=== PATIENT | female | born 1980 | race Hispanic/Latino ===

== ENCOUNTER 2018-04-12 10:43 | Emergency (ER) | payer OTHER ==
[~2018-04-12 10:43] MED LIST: AUGMENTIN 875-1 EACH PO; CLINDAMYCIN HC300 M1 PO; IBUPROFEN600 M1 PO; IBUPROFEN800 M1 PO; KEFLEX500 M1 PO; NYSTATIN30 GM TOP
[2018-04-12 11:00] VITALS: BP 118/82
[2018-04-12] MEDS ORDERED: PYRIDIUM100 M1 PO (12:13)
[2018-04-12] MEDS ORDERED: KEFLEX500 M1 PO (12:13)
--- NOTE | 2018-04-12 12:13 | ED GENERAL ADULT ---
History of Present Illness General Chief Complaint: Female Urogenital Problems Stated Complaint: PRESSURE WHEN URINATING Source: patient Exam Limitations: no limitations Vital Signs & Intake/Output Vital Signs & Intake/Output Vital Signs Date Time Temp Pulse Resp B/P B/P Pulse O2 O2 Flow FiO2 Mean Ox Delivery Rate 04/12 1132 Room Air 04/12 1100 97.2 73 22 118/82 98 Allergies Coded Allergies: loratadine (From CLARITIN) (SOB 08/14/17) Reconcile Medications Amoxicillin/Potassium Clav (Augmentin 875-125 Tablet) 875 MG-125 MG TABLET 1 TAB PO BID SINUSITIS Cephalexin (Keflex) 500 MG CAPSULE 1 CAP PO BID UTI Clindamycin HCl 300 MG CAPSULE 1 CAP PO 4XDAILY DENTAL (Reported) Ibuprofen 800 MG TABLET 1 TAB PO AD PRN PAIN/INFLAMMATION (Reported) Ibuprofen 800 MG TABLET 1 TAB PO TID HEADACHE Phenazopyridine HCl (Pyridium) 100 MG TABLET 1 TAB PO TID UTI Triage Note: PER PT PRESSURE WITH URINATION,FEELS LIKE I GOT TO GO BUT ONLY GO ALITTLE, DENIES BACK PAIN OR FEVERS Triage Nurses Notes Reviewed? yes Onset: Gradual Duration: day(s): Timing: constant : No Patient currently breastfeeds: No HPI: 37-year-old otherwise healthy female presenting with suprapubic pressure, urinary frequency, and urinary urgency 5 days. Denies dysuria, hematuria, fevers, nausea, vomiting, back pain. No vaginal discharge or bleeding, no history of STDs. (Norah Cotton) Past History Travel History Traveled to [place] past 21 day No Medical History Any Pertinent Medical History? 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 No (Norah Cotton) Review of Systems Review of Systems Constitutional: Reports: no symptoms. EENTM: Reports: no symptoms. Respiratory: Reports: no symptoms. Cardiovascular: Reports: no symptoms. GI: Reports: no symptoms. Genitourinary: Reports: see HPI. Musculoskeletal: Reports: no symptoms. Skin: Reports: no symptoms. Neurological/Psychological: Reports: no symptoms. Hematologic/Endocrine: Reports: no symptoms. Immunologic/Allergic: Reports: no symptoms. (Norah Cotton) Physical Exam Physical Exam General Appearance: well developed/nourished, no apparent distress, alert, awake , comfortable Head: atraumatic, normal appearance Eyes: Bilateral: normal appearance. Neck: normal inspection Respiratory: normal breath sounds, lungs clear Cardiovascular: regular rate/rhythm Gastrointestinal: soft, non-tender Back: normal inspection, no CVA tenderness Extremities: normal inspection Neurologic/Psych: awake, alert, oriented x 3, normal gait, normal mood/affect Skin: intact, normal color, warm/dry Core Measures ACS in differential dx? No CVA/TIA Diagnosis: No Sepsis Present: No Sepsis Focused Exam Completed? No (Norah Cotton) Progress Differential Diagnoses I considered the following diagnoses in my evaluation of the patient: [Cystitis versus pyelonephritis versus cervicitis versus PID] Plan of Care: Orders Procedure Date/time Status Add-on Test (ER Only) 04/12 1210 Active CULTURE,URINE 04/12 1101 Active URINE 04/12 1057 Complete URINALYSIS 04/12 1057 Complete Laboratory Tests 04/12/18 1101: Urinalysis LIGHT H, Urine Color YEL, Urine Clarity HAZY H, Urine pH 6.0, Ur Specific Central 1.025, Urine Protein NEG, Urine Ketones NEG, Urine Nitrite POS H, Urine Bilirubin NEG, Urine Urobilinogen 0.2, Ur Leukocyte Esterase MOD H, Ur Microscopic SEDIMENT EXAMINED, Urine RBC 1-3, Urine WBC > 75 H, Ur Epithelial Cells MANY H, Urine Bacteria MANY H, Urine Mucus FEW, Urine Hemoglobin SMALL H, Urine Glucose NEG, Urine Test NEGATIVE Microbiology 04/12 1101 URINE ROUT: Urine Culture - RECD UA is suspicious for UTI, many bacteria, nitrite positive, greater than 75 WBCs. Urine culture sent. No signs of pyelonephritis on exam. Will cover with Rx Keflex and Pyridium. Counseled on supportive care and strict return precautions. Initial ED EKG: none (Norah Cotton) Departure Departure Disposition: HOME OR SELF CARE Condition: Stable Clinical Impression Primary Impression: UTI (urinary tract infection) Referrals: Patient Has No Primary Care Dr (PCP/Family) Additional Instructions: Take Keflex and Pyridium as prescribed. Follow-up with your primary care provider for reevaluation. Return to the emergency department for any new or worsening symptoms. Departure Forms: Customer Survey General Discharge Information Prescriptions: Current Visit Scripts Cephalexin (Keflex) 1 CAP PO BID #20 CAP Phenazopyridine HCl (Pyridium) 1 TAB PO TID #6 TAB (Norah Cotton) PA/CRM SOLUTION ARCHITECT Co-Sign Statement Statement: ED Attending supervision documentation- [] I saw and evaluated the patient. I have also reviewed all the pertinent lab results and diagnostic results. I agree with the findings and the plan of care as documented in the PA's/CRM SOLUTION ARCHITECT's documentation. [X] I have reviewed the ED Record and agree with the PA's/CRM SOLUTION ARCHITECT's documentation. [] Additions or exceptions (if any) to the PAs/CRM SOLUTION ARCHITECT's note and plan are summarized below: [] (Yakov RICHARDSON,Ishan Perdomo) Critical Care Note Critical Care Note Critical Care Time: non-applicable (Norah Cotton)
== END 2018-04-12 12:22 ==
LOC: ERH 10:43
DX: N39.0 Urinary tract infection, site not specified (principal)
CPT/HCPCS: 81001; 81025; 87086

== ENCOUNTER 2018-07-07 00:29 | Emergency (ER) | payer OTHER ==
[~2018-07-07] VITALS: Ht 165.1 cm; Wt 136.1 kg
[~2018-07-07 00:29] MED LIST changes: +PYRIDIUM100 M1 PO
--- NOTE | 2018-07-07 01:08 | ED CARDIAC/CP/PALPITATIONS ---
History of Present Illness General Chief Complaint: Chest Pain Stated Complaint: CHEST PAIN PER PT Source: patient Exam Limitations: no limitations Vital Signs & Intake/Output Vital Signs & Intake/Output Vital Signs Date Time Temp Pulse Resp B/P B/P Pulse O2 O2 Flow FiO2 Mean Ox Delivery Rate 07/07 0603 97.7 66 20 132/78 97 Room Air 07/07 0342 97.8 63 20 114/53 99 Room Air 07/07 0135 98 Room Air 07/07 0044 97.6 07/07 0038 52 20 144/62 97 Room Air Allergies Coded Allergies: loratadine (From CLARITIN) (SOB 07/07/18) Reconcile Medications Amoxicillin/Potassium Clav (Augmentin 875-125 Tablet) 875 MG-125 MG TABLET 1 TAB PO BID SINUSITIS Cephalexin (Keflex) 500 MG CAPSULE 1 CAP PO BID UTI Clindamycin HCl 300 MG CAPSULE 1 CAP PO 4XDAILY DENTAL (Reported) Ibuprofen 800 MG TABLET 1 TAB PO AD PRN PAIN/INFLAMMATION (Reported) Ibuprofen 800 MG TABLET 1 TAB PO TID HEADACHE Phenazopyridine HCl (Pyridium) 100 MG TABLET 1 TAB PO TID UTI Triage Note: TRIAGE: PATIENT TO ER FROM HOME REPORTING +CP X 20 MINUTES, "LIKE THE DEVIL." +SOB, +NAUSEA -VOMITTING. REPORTS "ALSO FELT LIKE THIS EARLIER IN THE DAY, BUT WENT AWAY. I'M HAVING A HEART PROCEDURE TUESDAY AT [facility] TO UNCLOG SOME ARTERIES AND HAVE STENTS PUT IN." Triage Nurses Notes Reviewed? yes : No Patient currently breastfeeds: No HPI: Patient presents for evaluation of chest pain that she has suffered intermittently over the past few months. Apparently the patient was being cleared for bariatric surgery when she had a cardiology evaluation. She states that she had a stress test about a week ago that was positive. She has been scheduled for cardiac catheterization for stenting at [facility]. She cannot recall who her wheelchair van operator first responder is offhand. She is experiencing chest pain currently that began about 2:00 this afternoon. It seemed to be getting more intense when she arrived to the emergency department but currently it has eased some (5 out of 10 currently). She describes the pain as a severe sharp intermittent lower sternal pain. She does feel perspiration of the hands feet and the back of the head when she gets the pain. She denies cigarette smoking or alcohol use. She does smoke marijuana. She is currently being treated for hypertension but denies diabetes or elevated cholesterol. Past History Travel History Traveled to [place] past 21 day No Medical History Any Pertinent Medical History? 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 No Review of Systems Review of Systems Constitutional: Reports: no symptoms. EENTM: Reports: no symptoms. Respiratory: Reports: no symptoms. Cardiovascular: Reports: chest pain. GI: Reports: no symptoms. Genitourinary: Reports: no symptoms. Musculoskeletal: Reports: no symptoms. Skin: Reports: no symptoms. Neurological/Psychological: Reports: no symptoms. Hematologic/Endocrine: Reports: no symptoms. Immunologic/Allergic: Reports: no symptoms. All Other Systems: Reviewed and Negative Physical Exam Physical Exam Cardiovascular: SEE BELOW Comments: Gen.: Well-nourished, well-developed, no acute respiratory distress. Mild discomfort secondary to chest pain. Head: Normocephalic, atraumatic. Eyes: Normal inspection bilaterally Ears: Normal inspection bilaterally Nose: Normal inspection Throat/mouth : Moist mucosa Neck: Supple, full range of motion, no goiter Heart: Regular rate and rhythm, no murmurs rubs or gallops Lungs: Clear to auscultation bilaterally with normal air entry Chest: Nontender Back: Normal range of motion Abdomen: Soft, nontender, nondistended, normal bowel sounds Extremities: Normal range of motion grossly, equal radial pulses, no cyanosis clubbing or edema Neurologic: Cranial nerves grossly intact, speech is clear Skin: warm and dry Psychiatric: Calm, cooperative, no apparent delusions or hallucinations Core Measures ACS in differential dx? No CVA/TIA Diagnosis No Sepsis Present: No Sepsis Focused Exam Completed? No Progress Differential Diagnosis: AMI, PUD/GERD, PVCs/PACs, unstable angina, V-fib/V-Tach Plan of Care: Orders Procedure Date/time Status TROPONIN LEVEL 07/07 0500 Complete EKG 07/07 0500 Active Telemetry/Detonator Maker 09/28 0107 Active TROPONIN LEVEL 07/07 107 Complete MAGNESIUM 07/07 107 Complete CBC WITHOUT DIFFERENTIAL 07/07 107 Complete BASIC METABOLIC PANEL 07/07 107 Complete EKG 07/07 32 Active Current Medications Sig/Melissa Start time Last Medication Dose Stop Time Status Admin Ketorolac 60 MG ONCE ONE 07/07 115 CAN Tromethamine 07/07 011 (Toradol) Laboratory Tests 07/07/18 0509: Troponin I < 0.01 07/07/18 0108: Anion Gap 6, Estimated GFR > 60, BUN/Creatinine Ratio 21.4, Glucose 114 H, Calcium 9.1, Magnesium 2.0, Troponin I < 0.01, CBC w Diff NO MAN DIFF REQ, RBC 4.41, MCV 88.4, MCH 29.6, MCHC 33.5, RDW 14.8 H, MPV 9.2, Gran % 51.4, Lymphocytes % 39.6, Monocytes % 6.8, Eosinophils % 0.7, Basophils % 1.5, Absolute Granulocytes 6.5, Absolute Lymphocytes 5.0 H, Absolute Monocytes 0.9 H, Absolute Eosinophils 0.1, Absolute Basophils 0.2 Diagnostic Imaging: Discussed w/RAD: Radiology Read. Radiology Impression: PATIENT: SHY BUSTILLOS PRESENT AGE: 37 PATIENT ACCOUNT NO: [id number] : 79 LOCATION: [facility] ORDERING PHYSICIAN: Jacoby Mendiola MD SERVICE DATE: 07/07/18 EXAM TYPE: CAT - CTA CHEST-AORTIC DISSECTION EXAMINATION: CTA CHEST CLINICAL INFORMATION: Sharp pain, history of hypertension. COMPARISON: No prior CT. TECHNIQUE: Initially, multidetector CT imaging of the chest was performed without the use of intravenous contrast. Multidetector CT angiographic imaging of the chest was performed following the administration of intravenous contrast in the thoracic aortic phase. Coronal, axial, and sagittal reformats as well as MIPS were obtained. FINDINGS: The thoracic inlet structures are unremarkable. Noncontrast CT images demonstrate no evidence of renal based hyperdensity along the aorta to suggest intramural hematoma. The heart is top normal in size. No significant pericardial effusion is identified. Evaluation of the ascending thoracic aorta is made limited secondary to nongated technique. Allowing for this limitation, there is no evidence of dissection flap to suggest dissection involving the aortic arch or descending thoracic aorta. The thoracic aorta is within normal limits for size. No evidence of mediastinal adenopathy. The pulmonary artery is within normal limits for size. There is mild gas-filled patulous appearance of the distal esophagus. Evaluation of the lungs demonstrates no focal lung consolidation or mass. The central airways are patent. No evidence of pneumothorax or pleural effusion. No evidence of axillary or internal mammary adenopathy. The visualized upper abdomen is unremarkable. IMPRESSION: No acute intrathoracic abnormality. Specifically, no evidence of thoracic aortic dissection or aneurysm allowing for limitations of a nongated study. DICTATED BY : Eddie Hinds MD DATE/TIME DICTATED:07/07/18246 OPHTHALMIC MEDICAL ASSISTANT:LINDA DATE/TIME TRANSCRIBED:07/07/18246 CONFIDENTIAL, DO NOT COPY WITHOUT APPROPRIATE AUTHORIZATION. <Electronically signed in Other Vendor System> SIGNED BY: Eddie Hinds MD 07/07/18256 CXR Impression: PATIENT: SHY BUSTILLOS PRESENT AGE: 37 PATIENT ACCOUNT NO: [id number] : 79 LOCATION: [facility] ORDERING PHYSICIAN: Jacoby Mendiola MD SERVICE DATE: 07/07/18 EXAM TYPE: RAD - XRY-CHEST XRAY, TWO VIEWS EXAMINATION: XR CHEST CLINICAL INFORMATION: Lower chest pain. COMPARISON: 08/14/2017 TECHNIQUE: 2 views of the chest were obtained. FINDINGS: Cardiac silhouette is stable in size. No focal lung opacity identified. No pneumothorax or pleural effusion. Regional osseous structures are grossly intact. IMPRESSION: No acute intrathoracic abnormality. DICTATED BY: Eddie Hinds MD DATE/TIME DICTATED:07/07/18124 OPHTHALMIC MEDICAL ASSISTANT:LINDA DATE/TIME TRANSCRIBED:07/07/18124 CONFIDENTIAL, DO NOT COPY WITHOUT APPROPRIATE AUTHORIZATION. <Electronically signed in Other Vendor System> SIGNED BY: Eddie Hinds MD 07/07/18 013 Initial ED EKG: SINUS BRADYCARDIA WITH A VENTRICULAR RATE OF 48 AND AN INVERTED t-WAVE IN v2 OTHERWISE NO CHANGE COMPARED WITH PRIOR ASIDE FROM HEART RATE ( HEART RATE 75 ON PRIOR). Comments: 07/07/2018 2:03:04 AM Shy has had no improvement with the GI cocktail or Toradol. I have ordered a CTA to rule out aortic dissection or aneurysm. 07/07/2018 6:55:47 AM I have updated Shy on test results. She states that the sharp pains are no longer present but now she is having numbness of the hands and feet. She states she has had right shoulder pain is radiating into the arms for "a while". Evaluation of the extremities reveals good distal pulses and capillary refill and normal deep tendon reflexes. She is also complaining of chest tightness that worsens with palpation of the sternum. 07/07/2018 7:39:02 AM Shy is feeling better at this point and appears comfortable. She is arranging for a ride and will go directly to her wheelchair van operator first responder for evaluation. Although the cause of her chest pain is unclear at this point, there is no indication of aortic disease on her CAT scan and I doubt acute coronary syndrome given the 2 reassuring EKGs and troponin levels. Departure Departure Disposition: HOME OR SELF CARE Condition: Stable Clinical Impression Primary Impression: Atypical chest pain Referrals: Patient Has No Primary Care Dr (PCP/Family) Additional Instructions: Go directly to your wheelchair van operator first responder's office as intended. Notify your primary care doctor of this emergency department visit and treatment plan. Return if any concerns or sudden worsening. Please note that there might be incidental findings in your evaluation that are unrelated to the current emergency department visit. Please notify your primary care doctor about this emergency department visit in order to obtain and review all of the testing performed so that these incidental findings can be monitored as needed. If you had an x-ray performed, please understand that some fractures or other findings may not be seen on the initial set of x-rays. If your symptoms persist you might need a repeat set of x-rays to check for such a fracture. If you had a laceration evaluated, please understand that foreign bodies such as glass or wood may not be visible to the naked eye or on plain x-rays. If the wound becomes red, swollen, increasingly more painful or if there is any drainage from the wound, please have it reevaluated by a physician for the possibility of a retained foreign body. If you're unable to follow up as outlined in the discharge instructions please return to the emergency department. Thank you for choosing the [facility] Emergency Department for your care. It was a pleasure to serve you today. Jacoby Mendiola M.D. [facility] Departure Forms: Customer Survey General Discharge Information Critical Care Note Critical Care Note Critical Care Time: 30-74 min
[2018-07-07 01:30] LABS: ABSOLUTE BASOPHIL COUNT 0.2 /CUMM (0.0-0.2); ABSOLUTE EOSINOPHIL COUNT 0.1 /CUMM (0.0-0.7); ABSOLUTE GRANULOCYTE CT 6.5 /CUMM (1.4-6.5); ABSOLUTE MONOCYTE COUNT 0.9 /CUMM (0.10-0.60); BASOPHIL % 1.5 % (0.0-2.0); EOSINOPHIL % 0.7 % (0-5); GRANULOCYTE % 51.4 % (42.2-75.2); MEAN CORPUSCULAR HGB 29.6 PG (27.0-31.0); MEAN CORPUSCULAR HGB CONC 33.5 G/DL (33.0-37.0); MEAN CORPUSCULAR VOLUME 88.4 FL (81.0-99.0); MEAN PLATELET VOLUME 9.2 FL (7.4-10.4); PLATELET COUNT 322 /CUMM (130-400); RBC DISTRIBUTION WIDTH 14.8 % (11.5-14.5); RED BLOOD CELL CT 4.41 /CUMM (4.20-5.40); WHITE BLOOD CELL COUNT 12.6 /CUMM (4.8-10.8)
--- NOTE | 2018-07-07 01:31 | RADIOLOGY REPORT ---
EXAMINATION: XR CHEST CLINICAL INFORMATION: Lower chest pain. COMPARISON: 08/14/2017 TECHNIQUE: 2 views of the chest were obtained. FINDINGS: Cardiac silhouette is stable in size. No focal lung opacity identified. No pneumothorax or pleural effusion. Regional osseous structures are grossly intact. IMPRESSION: No acute intrathoracic abnormality.
--- NOTE | 2018-07-07 02:57 | CT SCAN REPORT ---
EXAMINATION: CTA CHEST CLINICAL INFORMATION: Sharp pain, history of hypertension. COMPARISON: No prior CT. TECHNIQUE: Initially, multidetector CT imaging of the chest was performed without the use of intravenous contrast. Multidetector CT angiographic imaging of the chest was performed following the administration of intravenous contrast in the thoracic aortic phase. Coronal, axial, and sagittal reformats as well as MIPS were obtained. FINDINGS: The thoracic inlet structures are unremarkable. Noncontrast CT images demonstrate no evidence of renal based hyperdensity along the aorta to suggest intramural hematoma. The heart is top normal in size. No significant pericardial effusion is identified. Evaluation of the ascending thoracic aorta is made limited secondary to nongated technique. Allowing for this limitation, there is no evidence of dissection flap to suggest dissection involving the aortic arch or descending thoracic aorta. The thoracic aorta is within normal limits for size. No evidence of mediastinal adenopathy. The pulmonary artery is within normal limits for size. There is mild gas-filled patulous appearance of the distal esophagus. Evaluation of the lungs demonstrates no focal lung consolidation or mass. The central airways are patent. No evidence of pneumothorax or pleural effusion. No evidence of axillary or internal mammary adenopathy. The visualized upper abdomen is unremarkable. IMPRESSION: No acute intrathoracic abnormality. Specifically, no evidence of thoracic aortic dissection or aneurysm allowing for limitations of a nongated study.
[2018-07-07 06:03] VITALS: BP 132/78
== END 2018-07-07 08:03 ==
LOC: ERH 00:29
PROVIDERS: Emergency Medicine
DX: R07.89 Other chest pain (principal); I10 Essential (primary) hypertension; Z87.891 Personal history of nicotine dependence
CPT/HCPCS: 71046; 93005; 93010; 96374; 96375; 96376; J1885